=== PATIENT | female | born 1955 | race African-American/Black ===

== ENCOUNTER 2017-10-11 08:57 | Outpatient (CLI) | payer OTHER ==
--- NOTE | 2017-10-11 13:31 | MRI ---
MRI LUMBAR SPINE WITHOUT CONTRAST: HISTORY: M48.061, lumbar stenosis. COMPARISON: MRI lumbar spine 06/26/14. FINDINGS: The aortic contour is normal. No aneurysmal dilatation. Due to hyperintense focus in the superior pole right kidney and superior pole left kidney is similar. There also appears to be a T2 hyperintense focus within the right lobe of the liver, also similar. No acute peritoneal adenopathy is appreciated. Paraspinal musculature is normal. Background marrow signal is normal. Lumbar lordosis is maintained. The conus medullaris terminates at the mid L2 vertebral body. Levels are as follows: T12-l1: Normal disk. No neural foraminal or spinal canal narrowing. Superior end plate Schmorl's n ode of T12. L1-2: Normal disk. No significant neural foraminal or spinal canal narrowing. There is a hemangioma within the L1 vertebral body. L2-3: Normal disk. No neural foraminal or spinal canal narrowing. L3-4: Mild disk desiccation. Low-grade circumferential disk bulge along with superimposed bilateral subcarinal disk protrusion with abutment of the exiting nerve roots. L4-5: Mild disk desiccation. Circumferential disk bulge. There is left subforaminal superimposed d isk protrusion abutting the exiting nerve root. There are also hypertrophic facet changes bilaterall y. L5-S1: Mild disk desiccation. Moderate disk arthropathy. The facet arthropathy causing moderate bi lateral neural foraminal narrowing. IMPRESSION: Moderate progressive spondylosis as described above worse at L3-4 and L4-L5. POS: [facility]
== END 2017-10-11 08:58 | disposition home or self-care (01) ==
LOC: MRI 08:57
PROVIDERS: ATTEND Neurological Surgery
DX: M48.061 Spinal stenosis, lumbar region without neurogenic claudication (principal); M47.896 Other spondylosis, lumbar region
CPT/HCPCS: 72148

== ENCOUNTER 2017-10-13 14:35 | Outpatient (CLI) | payer OTHER ==
[2017-10-13 15:36] LABS: Hemoglobin 12.9 g/dL (12.0-16.0); Mean Corpuscular HGB CONC 32.7 g/dL (32.0-36.0); Mean Corpuscular Hemoglobin 30.1 pg (27.0-31.0); Mean Platelet Volume 7.3 fL (7.4-10.4); Platelet Count 217 thou/uL (130-400); RBC Distribution Width 13.8 % (11.5-14.5); Red Blood Cell (RBC) Count 4.29 mill/uL (4.20-5.40); White Blood Cell (WBC) Count 6.7 thou/uL (4.8-10.8)
[2017-10-13 15:41] LABS: PTT 32.4 SEC (22.9-36.1)
[2017-10-13 15:45] LABS: Prothrombin Time 12.9 SEC (12.0-14.7)
[2017-10-13 15:51] LABS: ALT (SGPT) 23 U/L (8-55); AST (SGOT) 24 U/L (5-34); Alkaline Phosphatase 94 U/L (40-150); Anion Gap 10 mmol/L (10-20); BUN (Urea Nitrogen) 18 mg/dL (9.8-20.1); Bilirubin, Total 0.3 mg/dL (0.2-1.2); Calc. Creatinine Clearance 0 mL/min (70-130); Calcium 9.7 mg/dL (7.8-10.44); Carbon Dioxide 30 mmol/L (22-29); Chloride 104 mmol/L (98-107); Estimated GFR-MDRD 63; Globulin 3.3 g/dL (2.4-3.5); Glucose 95 mg/dL (70-105); Potassium 3.7 mmol/L (3.5-5.1); Protein, Total 7.3 g/dL (6.0-8.3); Sodium 140 mmol/L (136-145)
== END 2017-10-13 14:36 | disposition home or self-care (01) ==
LOC: LABBT 14:35
PROVIDERS: ATTEND Internal Medicine Cardiovascular Disease
DX: Z01.818 Encounter for other preprocedural examination (principal); R07.9 Chest pain, unspecified
CPT/HCPCS: 80053; 85027; 85610; 85730

== ENCOUNTER → 2017-10-18 | Day surgery (SDC) | payer OTHER ==
[2017-10-13 14:54] VITALS: BMI 31.3
[~2017-10-18] MED LIST: Diazepam 5 MG TAB ONE; Heparin 0 ML ONE; Heparin 10,000 UNITS/1 ML VIAL ONE; Iopamidol 370 76% 100 ML VIAL ONE; Iopamidol 370 76% 50 ML VIAL FS ONE; Lidocaine 1% (PF) 30 ML VIAL ONE; Midazolam HCl 2 mg/2 ml Vial ONE; Morphine 2 MG/ML SYRINGE ONE; Nitroglycerin 100MG/250ML BOT 250 ML ONE; hydrALAZINE 20 MG/ML VIAL ONE
--- NOTE | 2017-10-19 04:58 | DIS ---
DATE OF ADMISSION: 10/18/2017 DATE OF DISCHARGE: 10/18/2017 DISCHARGE DIAGNOSES: 1. Coronary artery disease. 2. Status post percutaneous transluminal coronary angioplasty and stent placement of the right coronary artery. 3. Hypertension. 4. Dyslipidemia. 5. Systemic lupus erythematosus. 6. Tobacco abuse. The patient is a very pleasant 61-year-old woman who has a long history of coronary artery disease. The patient had noticed having increasing angina and was admitted for further evaluation. HOSPITAL COURSE: On 10/18/2017 the patient underwent a left heart catheterization. She was found to have a normal left ventricular systolic function with an estimated ejection fraction of 55-60%. The left anterior descending artery had a 30% stenosis. The right coronary artery had a 70% proximal stenosis, a 70% mid stenosis and a distal 40% stenosis. The patient subsequently underwent PTCA and stent placement into the right coronary artery. She also underwent PTCA of the distal lesion in the right coronary artery. The patient remained free of chest discomfort. She is discharged in stable condition. DISCHARGE MEDICATIONS: Aspirin 81 daily, Plavix 75, daily, Lipitor 80 at bedtime, Zyrtec 10 daily, duloxetine 30 mg daily, folic acid 1 tablet daily, Lasix 20 mg b.i.d., nifedipine 60 XL tablet daily, Protonix 40 daily, losartan 50/12.5 mg daily, potassium 20 mEq tablet daily, prednisone 10 b.i.d., nitroglycerin tablets 1 tablet twice a day 2.5 mg b.i.d. MTDD
--- NOTE | 2017-10-20 17:37 | EKG ---
Test Reason : POST STENT -RAC Blood Pressure : / mmHG Vent. Rate : 096 BPM Atrial Rate : 096 BPM P-R Int : 206 ms QRS Dur : 078 ms QT Int : 374 ms P-R-T Axes : 060 063 086 degrees QTc Int : 472 ms Normal sinus rhythm Normal ECG When compared with ECG of 31-DEC-2016 12:15, No significant change was found Confirmed by DR. Sofiya STACK ([id number]) on 10/20/2017 5:37:00 PM Referred By: LAURENCE Confirmed By:DR. Sofiya STACK
== END ==
LOC: CCL 06:39
PROVIDERS: ATTEND Internal Medicine Cardiovascular Disease
PROC: 02703DZ Dilation of Coronary Artery, One Artery with Intraluminal Device, Percutaneous Approach (ICD-10-PCS; principal; 2017-10-18)
PROC: 02703ZZ Dilation of Coronary Artery, One Artery, Percutaneous Approach (ICD-10-PCS; principal; 2017-10-18)
DX: I25.10 Atherosclerotic heart disease of native coronary artery without angina pectoris (principal); I10 Essential (primary) hypertension; E78.5 Hyperlipidemia, unspecified; M32.9 Systemic lupus erythematosus, unspecified; F17.210 Nicotine dependence, cigarettes, uncomplicated; M81.0 Age-related osteoporosis without current pathological fracture; M79.7 Fibromyalgia; M35.00 Sjogren syndrome, unspecified; I73.00 Raynaud's syndrome without gangrene; M06.9 Rheumatoid arthritis, unspecified; Z79.02 Long term (current) use of antithrombotics/antiplatelets; Z79.52 Long term (current) use of systemic steroids; Z79.899 Other long term (current) drug therapy; Z88.6 Allergy status to analgesic agent
CPT/HCPCS: 85347; 92928; 93005; 93454; 99152; 99153; C1769; C1876; C1887; J0360; J1644; J2001; J2250; J2270

== ENCOUNTER 2018-02-08 14:10 | Outpatient (CLI) | payer OTHER ==
[2018-02-08 16:10] LABS: Anion Gap 10 mmol/L (10-20); BUN (Urea Nitrogen) 21 mg/dL (9.8-20.1); Calc. Creatinine Clearance 0 mL/min (70-130); Calcium 10.2 mg/dL (7.8-10.44); Carbon Dioxide 30 mmol/L (23-31); Chloride 103 mmol/L (98-107); Estimated GFR-MDRD 73; Glucose 101 mg/dL (80-115); Sodium 139 mmol/L (136-145)
== END 2018-02-08 14:11 | disposition home or self-care (01) ==
LOC: LABBT 14:10
PROVIDERS: ATTEND Neurological Surgery
DX: Z01.818 Encounter for other preprocedural examination (principal); M48.061 Spinal stenosis, lumbar region without neurogenic claudication
CPT/HCPCS: 80048; 93005; 93010

== ENCOUNTER → 2018-02-13 | Day surgery (SDC) | payer OTHER ==
[2018-02-08 14:25] VITALS: BMI 31.8
--- NOTE | 2018-02-12 23:54 | HP ---
HISTORY OF PRESENT ILLNESS: Ms. Murguia is known to us for previous evaluation of lumbar neurogenic claudication has reached a point now where she would like to treat this with something more than cons ervative measures up to date. She has attempted injections, TENS unit, physical therapy and medicati ons but continues to have present symptoms. She has an MRI from [facility] that reveals mod erate central canal stenosis at L4-L5 that likely would fit her symptoms and hopes to treat this now. PAST MEDICAL HISTORY: Significant for coronary arterial disease, hypertension, asthma, osteoarthriti s, rheumatoid arthritis, lupus, and Sjogren's. ALLERGIES: ASPIRIN. PAST SURGICAL HISTORY: Breast biopsy and cardiac stents. ASSESSMENT: Neurogenic claudication. PLAN: Dr. Ferro met with the patient, reviewed imaging and advocated for an L4-L5 decompression. He explained to the patient the risks, benefits, and alternatives of the procedure. The patient expres sed understanding and would like to move forward with surgery as discussed. Robin Palomo PA-C, dictating for Dr. Ferro.
[~2018-02-13] MED LIST changes: +Acetaminophen/Codeine 30-300mg Tablet ONE; +Bupivacaine HCl 0.5%/Epinephrine 1:200,000/PF 30 ml Vial ONE; +CEFAZOLIN/Water 2 GM/20 ML SYRINGE ONE; +Dexamethasone 20 MG/5 ML VIAL ONE; -Diazepam 5 MG TAB ONE; +Fentanyl 100 MCG/2 ML VIAL ONE; -Heparin 0 ML ONE; -Heparin 10,000 UNITS/1 ML VIAL ONE; -Iopamidol 370 76% 100 ML VIAL ONE; -Iopamidol 370 76% 50 ML VIAL FS ONE; -Lidocaine 1% (PF) 30 ML VIAL ONE; +Lidocaine 1% PF 5 ML VIAL ONE; +Meperidine HCl/PF 25 MG/ML VIAL ONE; -Morphine 2 MG/ML SYRINGE ONE; -Nitroglycerin 100MG/250ML BOT 250 ML ONE; +Ondansetron HCl/PF 4 MG/2 ML Vial ONE; +PROPOFOL 200 MG/20 ML VIAL ONE; +Promethazine HCl 25 MG/ML VIAL ONE; +SUGAMMADEX SODIUM 200 MG/2 ML VIAL ONE; +Thrombin 5000 UNITS/5 ML VIAL ONE; -hydrALAZINE 20 MG/ML VIAL ONE
--- NOTE | 2018-02-13 08:45 | OP ---
DATE OF PROCEDURE: 02/13/2018 SURGEON: Jose Ferro M.D. METAL FLOORING INSTALLER: Robin Palomo PA-C. INDICATION: Pain. DIAGNOSIS: Lumbar stenosis. PROCEDURE PERFORMED: L4-L5 lumbar decompression. ANESTHESIA: General. TECHNIQUE: The patient was brought into the operating room and placed under general anesthesia. She was flipped from a supine to a prone position on the operating room table. An incision was planned over the L4-L5 segment. After prepping and draping and after an appropriate operative pause, the inc ision was created. The soft tissues were swept away from midline. Self-retaining retractors placed in the wound for optimal exposure. After confirming the appropriate level with C-arm fluoroscopy, an Adson rongeur was used to remove the spinous processes along the inferior aspect of L4 and superior aspect of L5. A high-speed cutting drill bit as well as 2, 3 and 4-mm Kerrisons were then used to pe rform laminectomies at that segment. The laminectomies were extended laterally to encompass the medi al aspect of facet joints. After decompressing the L4-L5 segment, the wound was irrigated. Hemostas is was maintained throughout. The wound was then closed in anatomic layers and a pressure dressing w as applied. There were no known procedural complications.
== END ==
LOC: SDC 06:03
PROVIDERS: ATTEND Neurological Surgery
PROC: 01NB0ZZ Release Lumbar Nerve, Open Approach (ICD-10-PCS; principal; 2018-02-13)
DX: M48.062 Spinal stenosis, lumbar region with neurogenic claudication (principal); I25.10 Atherosclerotic heart disease of native coronary artery without angina pectoris; I10 Essential (primary) hypertension; J45.909 Unspecified asthma, uncomplicated; M19.90 Unspecified osteoarthritis, unspecified site; M06.9 Rheumatoid arthritis, unspecified; Z88.6 Allergy status to analgesic agent; Z79.82 Long term (current) use of aspirin; Z79.899 Other long term (current) drug therapy
CPT/HCPCS: 76001; 96374; J0670; J1100; J2001; J2175; J2250; J2405; J2550; J2704; J3010

== ENCOUNTER 2018-08-03 13:32 | Outpatient (CLI) | payer OTHER ==
--- NOTE | 2018-08-03 18:58 | MRI ---
MRI RIGHT HIP WITHOUT CONTRAST: 08/03/18 HISTORY: M25.551 pain. COMPARISON: None. FINDINGS: BONES: There is no fracture. No malalignment. No osteonecrosis. No avascular necrosis. No stress edema. LABRUM: Evaluation of the labrum is limited without intra-articular contrast. Labrum is poorly evaluated on t his examination. TENDONS: There is high grade partial tear of the right gluteus medius tendon from the greater trochanteric lat eral facet. Mild cortical irregularity of the lateral facet from chronic partial tearing. MUSCLES: Mild fatty atrophy of the right gluteus medius muscle. No edema. INTRAPELVIC SOFT TISSUES: Unremarkable. IMPRESSION: High grade partial tear of the right gluteus medius tendon from the greater trochanter with associate d mild greater trochanteric bursitis. Patient may benefit from ultrasound guided sternoid and anesthe tic injection. POS: [facility]
== END 2018-08-03 13:33 | disposition home or self-care (01) ==
LOC: BICMRI 13:32
PROVIDERS: ATTEND Orthopaedic Surgery
DX: M25.551 Pain in right hip (principal); S76.011A Strain of muscle, fascia and tendon of right hip, initial encounter; M70.61 Trochanteric bursitis, right hip

== ENCOUNTER 2018-10-24 14:24 | Outpatient (CLI) | payer OTHER ==
--- NOTE | 2018-10-24 16:04 | RAD ---
THREE VIEWS RIGHT SHOULDER: Comparison: None. History: Right shoulder pain for months. FINDINGS: Three views of the right shoulder shows no evidence of acute fracture or dislocation. No degenerative changes are seen. The visualized right thorax is unremarkable. IMPRESSION: Unremarkable exam. POS: [facility]
== END 2018-10-24 14:25 | disposition home or self-care (01) ==
LOC: TBSIIMAG 14:24
PROVIDERS: ATTEND Neurological Surgery
DX: M25.511 Pain in right shoulder (principal)

== ENCOUNTER 2019-01-05 10:01 | Outpatient (CLI) | payer OTHER ==
--- NOTE | 2019-01-05 11:43 | MRI ---
MR of the right shoulder without contrast INDICATION: Right shoulder pain. History of lupus and rheumatoid arthritis TECHNIQUE: Sagittal T1, axial and coronal PD fat sat, sagittal and coronal T2 fat sat images were obt ained of the right shoulder. COMPARISON: Right shoulder radiograph dated October 24, 2018 FINDINGS: Motion artifact limits image detail. Rotator cuff: Intact. There is moderate tendinosis of the supraspinatus. No rotator cuff muscular atr ophy is present. Glenohumeral joint: There is there is a focal full-thickness articular cartilage thinning involving t he anterior and inferior glenoid articular surface with associated subchondral cystlike abnormalities. Glenoid labrum: Visualized aspects of the glenoid labrum are intact. No definite parallel labral cyst is seen. Biceps tendon and biceps anchor: There is mild to moderate tendinosis of the intra-articular biceps t endon. Acromion clavicular joint: There is mild AC joint osteoarthrosis Subacromial subdeltoid space: No appreciable fluid. Axillary region: No lymphadenopathy. Surrounding shoulder musculature: Normal. No evidence of atrophy or strain. IMPRESSION: 1. No full-thickness rotator cuff tear demonstrated. There is moderate supraspinatus tendinosis. 2. Mild to moderate biceps tendinosis. 3. Moderate chondrosis of the glenoid articular surface with areas of full-thickness thinning involvi ng the anterior and inferior aspect of the glenoid articular surface. 4. Mild AC joint osteoarthrosis.
--- NOTE | 2019-01-05 12:26 | ULT ---
LIMITED SOFT TISSUE ULTRASOUND: Date: 01/05/19 PROVIDED CLINICAL HISTORY: Lump. FINDINGS: Limited sonographic interrogation was performed of the right neck in the region of the right submandi bular gland. There is no evidence for focal mass. A calcification is seen within the submandibular gl and. IMPRESSION: No sonographically apparent mass to correspond with the region of palpable concern. There is a calcif ication present within the submandibular gland that may reflect a sialolith. POS: [facility]
== END 2019-01-05 10:02 | disposition home or self-care (01) ==
LOC: BICMRI 10:01
PROVIDERS: ATTEND Orthopaedic Surgery
DX: M25.511 Pain in right shoulder (principal); M75.91 Shoulder lesion, unspecified, right shoulder; M24.111 Other articular cartilage disorders, right shoulder; M19.011 Primary osteoarthritis, right shoulder; K11.8 Other diseases of salivary glands
CPT/HCPCS: 76536

== ENCOUNTER 2019-03-28 13:43 | Outpatient (CLI) | payer OTHER ==
--- NOTE | 2019-03-28 15:36 | ULT ---
RENAL ULTRASOUND WITH DOPPLER: DATE: 03/28/2019. PROVIDED CLINICAL HISTORY: Chronic kidney disease. FINDINGS: The right kidney measures about 10.5 x 4.9 x 3.6 cm and demonstrates no evidence for hydronephrosis o r solid mass. A simple-appearing 1.4 cm superior pole cyst. The left kidney measures about 9.9 x 4.4 x 4.3 cm and demonstrates no evidence for hydronephrosis or mass. The urinary bladder appears sonographically unremarkable. Color Doppler and spectral analysis of the aortic, main right and left renal and bilateral arcuate re nal arteries was performed. There is elevation of peak systolic velocity within the right renal rayo ry to 165 cm/s. There is elevation of the left main renal artery peak systolic velocity to 120 cm/s. Abdominal aortic peak systolic velocity is 52.2 cm/s. Right renal artery to aorta ratio is 3.2. Left renal artery to aorta ratio is 2.3. The resistive indices within the arcuate system are normal bilaterally, 0.55 on the right and 0.53 on the left. IMPRESSION: 1. Elevated peak systolic velocity and associated renal artery to aorta ratio on the right, which ma y reflect renal artery stenosis. 2. No evidence for hydronephrosis. POS: [facility]
== END 2019-03-28 13:44 | disposition home or self-care (01) ==
LOC: BICULT 13:43
PROVIDERS: ATTEND Family Medicine
DX: N18.3 Chronic kidney disease, stage 3 (moderate) (principal)
CPT/HCPCS: 76700; 76770

== ENCOUNTER 2019-03-28 14:27 | Outpatient (CLI) | payer OTHER ==
--- NOTE | 2019-04-04 10:28 | MMO ---
Bilateral MAMMO Bilat Screen DDI. CLINICAL HISTORY: Patient is 63 years old and is seen for screening. The patient has the following family history of breast cancer: paternal grandmother, malignant (generic). The patient has no personal history of cancer. The patient has a history of left Excisional Biopsy in 1991 - benign and left Excisional Biopsy in 1993 - benign. VIEWS: The views performed were: bilateral craniocaudal and bilateral mediolateral oblique. FILMS COMPARED: The present examination has been compared to prior imaging studies performed at [facility] on 06/30/2007, and at [facility] on 02/28/2008. This study has been interpreted with the assistance of computer-aided detection. MAMMOGRAM FINDINGS: There are scattered fibroglandular densities. There are stable benign appearing calcifications seen in both breasts. There are no suspicious masses, suspicious calcifications, or new areas of architectural distortion. IMPRESSION: THERE IS NO MAMMOGRAPHIC EVIDENCE OF MALIGNANCY. A ROUTINE FOLLOW-UP MAMMOGRAM IN 1 YEAR IS RECOMMENDED. ACR BI-RADS Category 2 - Benign finding MAMMOGRAPHY NOTE: 1. A negative mammogram report should not delay a biopsy if a dominant of clinically suspicious mass is present. 2. Approximately 10% to 15% of breast cancers are not detected by mammography. 3. Adenosis and dense breasts may obscure an underlying neoplasm. Reported by: PROSPER CELESTE MD Electonically Signed: [id number]
== END 2019-03-28 14:28 | disposition home or self-care (01) ==
LOC: BICMAMMO 14:27
PROVIDERS: ATTEND Family Medicine
DX: Z12.31 Encounter for screening mammogram for malignant neoplasm of breast (principal); Z80.3 Family history of malignant neoplasm of breast
CPT/HCPCS: 77067

== ENCOUNTER 2019-04-20 12:05 | Outpatient (CLI) | payer OTHER ==
--- NOTE | 2019-04-20 14:10 | CT ---
CT neck soft tissues with contrast: DATE: 04/20/2019 HISTORY: Sialolithiasis. Right-sided neck pain 63-year-old female. FINDINGS: There are at least 3 calculi within the right submandibular gland. One is approximately 3 x 4 x 5 mm. Abutting its posterior inferior surface, there is another one measuring 3 x 2 x 2 mm. Located 2 mm lateral to the first one, there is a 2 x 2 x 1 mm calculus. No fat stranding around the submandibular glands. Bilateral submandibular glands are symmetrical in s ize with respect to each other. Within limitations of a noncontrast scan, no other abnormality is identified involving the submandibular, parotid, parapharyngeal, corporate account executive, retropharyngeal, or post erior cervical, spaces. ACDF hardware at C4-5. No laryngeal abnormality grossly. No calculus in Warthin's ducts or Stensen's ducts. IMPRESSION: 1. Sialolithiasis consisting of 3 sialoliths in the right submandibular gland. 2. Please note that in general, all CTs of the soft tissues of the neck should be performed with IV c ontrast (unless contraindicated), including for sialolithiasis (the only exception would be parathyroid protocol which would be with and without contrast).
== END 2019-04-20 12:06 | disposition home or self-care (01) ==
LOC: BICCT 12:05
PROVIDERS: ATTEND Otolaryngology Otolaryngic Allergy
DX: K11.5 Sialolithiasis (principal)
CPT/HCPCS: 70490

== ENCOUNTER 2019-09-04 09:02 | Outpatient (CLI) | payer OTHER ==
--- NOTE | 2019-09-04 10:10 | MRI ---
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 COMPARISON: Right hand radiographs dated January 07, 2016 and right wrist radiographs dated May 15, 2019. TECHNIQUE: Multiplanar multisequence MR images were obtained of the right wrist without intraarticular or IV con trast. FINDINGS: There is nonvisualization of normal scapholunate ligaments along the volar and dorsal aspect of the s capholunate interval. No interosseous band is evident. There is dorsal angulation of the lunate in relationship to the scaphoid consistent with DISI malalignment. There is advanced radiocarpal, midcar pal osteoarthrosis predominantly affecting the STT and the scaphoid capitate and lunate capitate articulations. There are prominent subchondral cystlike abnormalities within the scaphoid, proximal c apitate, lunate and distal radius. There is a prominent area of intrasubstance degenerative-type tearing involving the peripheral aspect of the TFC measuring 4.2 mm on image 9 of series 7. The perip heral attachments to the ulnar styloid process and fovea appear intact. The radial ulnar ligaments appear intact. The lunatotriquetral ligaments appear intact. The extrinsic ligaments appear to be int act. There is moderate first CMC osteoarthrosis. There is a mild joint effusion with mild synovial hypertrophy seen within the pisiform recess as well as the DRUJ. There is mild fluid distention invol ving the ECRB and ECRL tendons. There is mild fluid distention of the extensor carpi ulnaris tendon. There is mild fluid distention of the FCR tendon sheath. The visualized carpal tunnel content s appear within normal limits. IMPRESSION: 1. Findings consistent with a SLAC wrist. There is nonvisualization of the normal-appearing scapholun ate ligaments. There is DISI malalignment of the lunate with advanced osteoarthritic change involving the radiocarpal and midcarpal joints. There is some proximal migration of the capitate in r elationship to the scaphoid and lunate. 2. Degenerative, near full-thickness tear involving the peripheral aspect of the TFC. 3. Mild tenosynovitis of the ECRB and ECRL tendon sheath as well as the ECU and FCR tendons. This is likely reactive tenosynovitis. 4. Mild joint effusion within the radiocarpal and DRUJ joints. Transcribed Date/Time: 09/04/2019 10:29 AM
== END 2019-09-04 09:03 | disposition home or self-care (01) ==
LOC: BICMRI 09:02
PROVIDERS: ATTEND Orthopaedic Surgery Hand Surgery
DX: S69.81XA Other specified injuries of right wrist, hand and finger(s), initial encounter (principal); M19.031 Primary osteoarthritis, right wrist; S63.591A Other specified sprain of right wrist, initial encounter; M65.9 Synovitis and tenosynovitis, unspecified; M25.431 Effusion, right wrist

== ENCOUNTER 2019-10-17 03:04 | Observation (INO) | payer OTHER ==
[2019-10-17 04:39] LABS: Troponin I 0.148 ng/mL (< 0.028)
[2019-10-17] MEDS ORDERED: Ondansetron PF 4 MG/2 ML Vial IVP PRN (05:58)
[2019-10-17] MEDS ORDERED: Calcium Carbonate 500 MG ChewTAB PO PRN (05:58)
[2019-10-17] MEDS ORDERED: Acetaminophen 325 MG TAB PO PRN (05:58)
[2019-10-17] MEDS ORDERED: Ondansetron ODT 4 MG TAB PO PRN (05:58)
--- NOTE | 2019-10-17 06:03 | PDOC.FPRHP ---
- History of Present Illness Chief Complaint: Chest Pain, Dizziness History of Present Illness: Patient is a 63 yo female who presents with chest pain accompanied by nausea & vomiting that started at 1715 on 10/16/2019. Chest pain was described as pressure- like located in center of chest with no radiation. The patient also felt dizzy at the time. She took one of her home nitro and laid down but after 3 hours the pain was still not better which prompted her to go to the ED in [place], [place]. At that ED she was found to be in SVT, which converted to NSR after 1 dose of Adenosine. She was transferred to [facility] for admission. Patient is not currently complaining of any symptoms. Patient states that she has had heart arrhythmias in the past, for which she is followed by Cardiology-Dr. Correa. Pt states that Dr. Correa recently increased her Metoprolol to 50 mg BID and had been discussing a possible ablation procedure for October 21. Patient says that she has been having dizzy spells on/off for 2 months. She has had similar chest pain in the past when she was told her heart was racing at the time. ED Course: In [place] ED was found to be in SVT, given 1 dose Adenosine and converted to NSR and symptoms resolved. Then transferred to [facility] ED for further workup. Initial trop 0.036, uptrending to 0.092 to 0.148. - Allergies/Adverse Reactions Allergies Allergy/AdvReac Type Severity Reaction Status Date / Time aspirin Allergy Intermediate RASH, HIVES Verified 10/17/19 06:25 shrimp Allergy Verified 10/17/19 06:25 - Home Medications Medication Instructions Recorded Confirmed Type Cetirizine HCl [Zyrtec] 10 mg PO DAILY PRN 11/25/16 02/08/18 History Clopidogrel Bisulfate [Clopidogrel] 75 mg PO DAILY 11/25/16 02/08/18 History HYDROcodone/Acetaminophen 1 each PO PRN PRN 11/25/16 02/08/18 History [Hydrocodone-Acetamin 10-325 mg] Leflunomide 10 mg PO DAILY 11/25/16 02/08/18 History Methotrexate Sodium [Methotrexate] 6 tab PO Q7DAYS 11/25/16 02/08/18 History Nitroglycerin 2.5 mg PO BID 11/25/16 02/08/18 History predniSONE [Prednisone] 10 mg PO BID 11/25/16 02/08/18 History Albuterol Sulfate [Proair 2 mcg IH Q4H PRN 12/31/16 02/08/18 History Respiclick] Alendronate Sodium 70 mg PO Q7D 12/31/16 02/08/18 History Atorvastatin Calcium 80 mg PO HS 12/31/16 02/08/18 History Cyanocobalamin (Vitamin B-12) 1,000 mcg PO DAILY 12/31/16 02/08/18 History [Vitamin B-12] Folic Acid [Folvite] 1 mg PO DAILY 12/31/16 02/08/18 History Ipratropium [Atrovent HFA] 2 puff INH QID PRN 12/31/16 02/08/18 History Lidocaine/Prilocaine 1 applic TOP PRN PRN 12/31/16 02/08/18 History [Lidocaine-Prilocaine Cream] Ondansetron HCl 1 - 2 tab PO TID PRN 12/31/16 02/08/18 History Pantoprazole Sodium 40 mg PO DAILY PRN 12/31/16 02/08/18 History Terbinafine HCl [LamISIL AT Cream] 1 applic TOP TID PRN 12/31/16 02/08/18 History hydrOXYzine [Atarax] 25 mg PO QID PRN 12/31/16 02/08/18 History NIFEdipine [Nifedipine ER] 60 mg PO DAILY #30 tablet.er 01/01/17 02/08/18 Rx Potassium Chloride [K-Dur] 20 meq PO DAILY #30 tab 01/01/17 02/08/18 Rx Aspirin [Ecotrin] 81 mg PO DAILY 02/08/18 02/08/18 History Cholecalciferol (Vitamin D3) 50,000 unit PO Q7D 02/08/18 02/08/18 History [Vitamin D3] Losartan/Hydrochlorothiazide 1 tablet PO DAILY 02/08/18 02/08/18 History [Hyzaar] Ranolazine [Ranexa] 500 mg PO BID 02/08/18 02/08/18 History - History PMHx: SLE, Sjogren's syndrome, Raynaud's, HTN, HLD, CKD unknown stage, COPD PSHx: cardiac cath with stent placement in 2013, salivary stone removal on right , cervical and lumbar spinal surgeries FHx: father of RI age 70, mother with DM ( of car accident), grandmother with breast cancer, sister with DM Social: smokes 2 cigarettes/day, no EtOH use - Review of Systems General: denies: fever/chills, weight/appetite/sleep changes, fatigue Eyes: denies: vision changes ENT: denies: nasal congestion Respiratory: denies: cough, congestion, shortness of breath Cardiovascular: reports: chest pain, palpitation. denies: edema Gastrointestinal: reports: nausea, vomiting. denies: diarrhea, constipation, abdominal pain Genitourinary: denies: dysuria Skin: denies: rashes, lesions, jaundice Musculoskeletal: denies: pain, swelling Neurological: denies: numbness, syncope, weakness - Vital signs BP: 138/95 HR: 75 RR: 15 Tmax: 98.2F Pox: 98% on RA Wt: 73 kg - Physical Exam Constitutional: NAD, awake, alert and oriented, well developed HEENT: normocephalic and atraumatic, EOMI, conjunctiva clear, grossly normal vision, grossly normal hearing, MMM Neck: supple, FROM, no JVD Chest: no-tender to palpation, no lesions Heart: RRR, normal S1/S2, no murmurs/rubs/gallops, pulses present, no edema Lungs: CTAB, no respiratory distress, good air movement, no rales/rhonchi, no wheezing Abdomen: soft, non-tender, bowel sounds present Musculoskeletal: normal structure, normal tone, ROM grossly normal Neurological: no focal deficit, normal sensation Skin: no rash/lesions, good turgor, capillary refill <2 seconds, no jaundice -Heme/Lymphatic: scattered bruising of different stages on extremities Psychiatric: normal mood and affect, intact recent and remote memory FMR H&P: Results - Labs Result Diagrams: 10/17/19 06:43 10/17/19 06:43 FMR H&P: A/P - Problem List (1) Atypical chest pain Current Visit: Yes Status: Acute Code(s): R07.89 - OTHER CHEST PAIN (2) Hx of supraventricular tachycardia Current Visit: Yes Status: Acute Code(s): Z86.79 - PERSONAL HISTORY OF OTHER DISEASES OF THE CIRCULATORY SYSTEM (3) Acute kidney injury Current Visit: Yes Status: Acute Code(s): N17.9 - ACUTE KIDNEY FAILURE, UNSPECIFIED - Plan Patient is a 63 yo female with atypical chest pain and dizziness: #Atypical Chest Pain -consult Cardio, Dr. Correa in AM -troponins 0.036 > 0.092 > 0.148, will continue to trend -suspect d/t demand ischemia given recent hx of SVT -risk stratification labs: TSH, A1C, FLP, Mag, Phos -consider stress test, last had cardiac cath in 2013 with 2 stent placements #Hx of SVT -converted after 1 dose of Adenosine on 10/16/19 in [place] ED -place on telemetry monitoring #ANDREW -initial BUN 27, Cr 1.42, above baseline of 1 -half maintenance IVF LR @ 60 ml/h -check CMP on AM labs Diet: NPO, ice chips & sips of water okay VTE: SCDs Code status: FULL Dispo: Stable, admitted to observation on telemetry unit. Obtain labs & trend trops, consult Cardiology in AM. Anticipate LOS <48 hrs. FMR H&P: Upper Level - Plan Date/Time: 10/17/19 0602 ISamantha, , have evaluated this patient and agree with findings/plan as outlined by software engineer intern resident. Pertinent changes/additions are listed here. Pt is a 63 yo F with PMH of SVT, CAD s/p stent, HTN, and HLD presenting for pressure like chest pain, dizziness, and nausea onset 1715 yesterday. She was found to have SVT in [place] ED, and was chemically converted to NSR. She reports almost resolved CP since that time. She reports recent hx of arrhythmias seen by Dr. Correa and metoprolol dose was increased. She reports she has an upcoming appt where they were going to discuss ablation. Last cath 2 yrs ago per her report, per chart review was in 2013. VS: 174/77, T97.8, P82, R18, o298%RA PE: Gen: well developed, NAD HEENT: Moist MM Heart: RRR, no murmurs or extra sounds. Distal pulses 2+ Lungs: CTAB, no wheezing. No increased work of breathing Abd: soft, nontender, BS+ Ext: no cyanosis or edema Skin: no rashes, multiple ecchymosis of LE Psych: AOx3, normal mood Pertinent Labs/Imaging: WBC 12.8 BUN/Cr: 27/1.42 Trop: 0.036, 0.092, 0.148 EKG: NSR with no ST changes A/P: SVT s/p Chemical Conversion: -NSR now with no ST changes on EKG -place in obs for tele monitoring. Atypical CP: -pt reports almost resolved since conversion into NSR. -trops uptrending, continue to trend but likely d/t demand -Consult Dr. Correa in AM to discuss possible stress. NPO until cards. -HEART score: 4 -risk stratify and evaluate other causes- FLP, A1c, Mg, Phos, TSH ANDREW on CKD: -baseline Cr. 1.1 -place on gentle fluids and encourage PO hydration once PO. See software engineer intern note for management of chronic medical conditions. DVT PPx: SCD GI Ppx: none Code status: Full Dispo: Stable, LOS likely <48h.
[2019-10-17 06:19] VITALS: BMI 29.7
[2019-10-17 06:54] LABS: #Eosinphils 0.2 thou/uL (0.0-0.7); #Lymphocytes 2.9 thou/uL (1.20-3.40); #Monocytes 0.7 thou/uL (0.11-0.59); %Basophils 0.2 % (0.0-1.0); %Eosinophils 1.9 % (0.0-10.0); %Lymphocytes 33.1 % (21.0-51.0); %Monocytes 8.1 % (0.0-10.0); %Neutrophils 56.8 % (42.0-75.0); Mean Corpuscular HGB CONC 32.3 g/dL (32.0-36.0); Mean Corpuscular Hemoglobin 30.4 pg (27.0-31.0); Mean Corpuscular Volume 94.2 fL (78.0-98.0); Mean Platelet Volume 7.9 fL (7.4-10.4); Platelet Count 188 thou/uL (130-400); RBC Distribution Width 13.5 % (11.5-14.5); Red Blood Cell (RBC) Count 4.28 mill/uL (4.20-5.40); White Blood Cell (WBC) Count 8.8 thou/uL (4.8-10.8)
[2019-10-17 07:01] LABS: Hemoglobin A1c 5.3 % (4.0-6.0)
[2019-10-17 07:07] LABS: Phosphorus 3.3 mg/dL (2.3-4.7)
[2019-10-17 07:10] LABS: ALT (SGPT) 14 U/L (8-55); AST (SGOT) 13 U/L (5-34); Albumin 3.6 g/dL (3.4-4.8); Alkaline Phosphatase 81 U/L (40-110); Anion Gap 11 mmol/L (10-20); BUN (Urea Nitrogen) 19 mg/dL (9.8-20.1); Bilirubin, Total 0.3 mg/dL (0.2-1.2); Calc. Creatinine Clearance 72 mL/min (70-130); Calcium 9.1 mg/dL (7.8-10.44); Carbon Dioxide 29 mmol/L (23-31); Cardiac Risk 3.1 (Less than 4.5); Chloride 106 mmol/L (98-107); Cholesterol 180 mg/dl (< 200 Desired); Estimated GFR-MDRD 70; Globulin 3.3 g/dL (2.4-3.5); Glucose 91 mg/dL (80-115); HDL Cholesterol 58 mg/dL (>60 Neg Risk); LDL Cholesterol, Calculated 110 mg/dL; Magnesium 2.1 mg/dL (1.6-2.6); Potassium 3.5 mmol/L (3.5-5.1); Protein, Total 6.9 g/dL (6.0-8.3); Sodium 142 mmol/L (136-145); Triglycerides 58 mg/dL (Less than 150)
[2019-10-17 07:31] LABS: CKMB 3.2 ng/mL (0-6.6)
[2019-10-17] MEDS: Lactated Ringer's 1,000 ML IV SCH ×2 (08:02→23:59)
--- NOTE | 2019-10-17 09:15 | CON ---
DATE OF CONSULTATION: HISTORY OF PRESENT ILLNESS: A 63-year-old woman, who presented with palpitations and chest discomfort. The patient has a long history of coronary artery disease. In 2013, she underwent a cardiac catheterization. She was found to have a 30% proximal LAD lesion, 40% ostial circumflex lesion, and 40% RCA lesion. The patient was placed on medical therapy. She is advised to discontinue smoking. She re- presented with chest pain in October of 2017. She underwent repeat catheterization. She was found to have a 30% LAD lesion. There is a 70% lesion in the proximal and mid RCA and another 40% mid stenosis. The patient subsequently underwent PTCA and stent placement into this vessel. The patient has subsequently been on medical therapy. She had been reporting having increasing palpitations. She presented to the hospital with palpitations, lightheadedness, and chest discomfort. PAST MEDICAL HISTORY: 1. Coronary artery disease. 2. Hypertension. 3. Sjogren's syndrome. 4. Dyslipidemia. 5. COPD. PAST SURGICAL HISTORY: Back surgery and a stone removed from her salivary gland. SOCIAL HISTORY: Long history of continued tobacco abuse. FAMILY HISTORY: Strong family history of coronary artery disease. MEDICATIONS: See nursing list. ALLERGIES: ASPIRIN AND SHRIMP. PHYSICAL EXAMINATION: GENERAL: Well-developed woman, in no acute distress. VITAL SIGNS: Blood pressure of 124/75. NECK: No jugular venous distention. LUNGS: Clear to auscultation. HEART: Regular rate and rhythm. Normal S1 and S2. ABDOMEN: Nondistended. EXTREMITIES: Showed no edema. LABORATORY DATA: Sodium 142, potassium 3.5, chloride 106, bicarbonate 29, BUN 19, and creatinine 0.98. Troponin was 0.0148. White blood cell count 8.8, hemoglobin 13.0, hematocrit 43.3, and platelets are 188. IMAGING DATA: EKG revealed supraventricular tachycardia with a rate of 176. IMPRESSION: 1. Supraventricular tachycardia. 2. History of percutaneous transluminal coronary angioplasty and stent placement. 3. Dyslipidemia. 4. Sjogren's disease. 5. Tobacco abuse. PLAN: This patient presents with rapid SVT. EP consultation will be obtained. It will be recommended that the patient be considered for ablation. Job ID: [id number] [facility]
[2019-10-17] MEDS ORDERED: Lidocaine 1% PF 5 ML VIAL ONE (09:53)
[2019-10-17] MEDS ORDERED: Ondansetron PF 4 MG/2 ML Vial ONE (09:53)
[2019-10-17] MEDS ORDERED: Heparin 10,000 UNITS/1 ML VIAL ONE (14:42)
[2019-10-17] MEDS ORDERED: Fentanyl 100 MCG/2 ML VIAL ONE ×2 (14:49→17:36)
[2019-10-17] MEDS ORDERED: Propofol 500 MG/50 ML VIAL ONE ×2 (15:23→16:29)
[2019-10-17] MEDS ORDERED: Isoproterenol 0.2 MG/1 ML AMP ONE (16:04)
--- NOTE | 2019-10-17 16:13 | HP ---
I have discussed the case with Dr. Genesis Molina and I agree with her assessment and plan. I have examined the patient. HISTORY OF PRESENT ILLNESS: Briefly, Ms. Murguia is a 63-year-old female with a coronary artery disease, who presented with some chest pain as well as palpitations. She presented to an outlying ER in [place] and was found to be in SVT. She was given a dose of adenosine and converted to normal sinus rhythm. She was subsequently transferred to [place] for higher level of care. She normally sees Dr. Correa of the Cardiology service for her heart arrhythmias and CAD. PHYSICAL EXAMINATION: GENERAL: Right now, she is awake, alert, pleasant, no distress. She is not short of breath. She is not currently having palpitations. She is not having chest pain. VITAL SIGNS: Her blood pressure is 138/90. Her heart rate is now 70 and regular. Her respirations are 15. She is afebrile. Her room air pulse ox is 98%. GENERAL: As stated, awake, alert, pleasant. EAR, NOSE, THROAT: No erythema or exudate. NECK: Supple. No JVD. CARDIAC: PMI is in the fifth intercostal space. There is an S4 apical gallop. No murmur or rub noted. No extrasystole. LUNGS: Clear without rales or wheezes. ABDOMEN: Flat and soft without guarding, rebound, or rigidity. NEUROLOGIC: There are no focal deficits. LABORATORY DATA: Her CBC shows white count of 8800, hemoglobin was 13, her hematocrit was 40.3 with an MCV of 94.2. Chemistries; sodium 142, potassium 3.5, chloride 106, bicarb 29, BUN 19, creatinine 0.98 with a GFR of 70. Troponins level at 0.148 and 0.141. Total cholesterol 180, LDL 110. ASSESSMENT: 1. Supraventricular tachycardia. 2. History of coronary artery disease. PLAN: The patient is admitted, has already been seen by Cardiology who has consulted Dr. Guerrero of the EP service for consideration of ablation. Job ID: [id number]
--- NOTE | 2019-10-17 16:25 | CON ---
DATE OF CONSULTATION: 10/17/2019 REASON FOR CONSULTATION: Supraventricular tachycardia. HISTORY OF PRESENT ILLNESS: Ms. Murguia is a 63-year-old woman who is a long- time patient of Dr. Tapan Correa for her cardiology care and coronary artery disease. In 2013, she underwent a left heart catheterization, revealing approximately 30 % to 40% nonobstructive lesions and she was placed on medical therapy. She presented with chest pain in 10/2017, where repeat left heart catheterization was performed, which found significant CAD in the mid and proximal RCA, measured 70%, and then was subsequently stented. She is continued on medical therapy. She presents to the hospital with palpitations and lightheadedness with some mild chest discomfort. Ms. Murguia has begun experiencing palpitations with some "off sensations." She has some associated chest discomfort. She has noticed these episodes are increasing in frequency over the past 6 to 12 months, but does not recall any episodes prior to that time. She presented to an outside emergency room where she was found to be in SVT in 170 to 180 beats per minute range. She was given adenosine to treat her SVT. This restored sinus rhythm and she was transferred to [facility] for further evaluation and workup. She has not had any recurrence on telemetry since admission. She has had no return of her symptoms since admission. She is currently feeling quite well and has no cardiac complaints at the moment. REVIEW OF SYSTEMS: A 12-point review of systems is unremarkable except that listed above in HPI. PAST MEDICAL HISTORY: 1. Coronary artery disease status post stenting to the RCA in 10/2017. 2. Tobacco habituation. 3. Obesity. 4. Hypertension. 5. Sjogren syndrome. 6. Dyslipidemia. 7. COPD. SURGICAL HISTORY: 1. Back surgery. 2. Stone removal from her salivary gland. SOCIAL HISTORY: Tobacco abuse. Negative for alcohol or illicit drug use. FAMILY HISTORY: Positive for CAD. ALLERGIES: ASPIRIN AND SHRIMP. MEDICATIONS: 1. Xeljanz 5 mg p.o. b.i.d. 2. Voltaren 0.1% ophthalmic solution q.i.d. 3. Orazinc 110 mg daily. 4. Dovonex cream b.i.d. 5. Montelukast 5 mg daily. 6. Nexium 20 mg daily. 7. Hydralazine 50 mg t.i.d. 8. Citalopram 10 mg daily. 9. Granby 10/325 two tablets q.4 h. 10. Enbrel 5 mg weekly. 11. Toprol-XL 50 mg daily. 12. Vascepa 2 g b.i.d. 13. Zetia 10 mg daily. 14. Alendronate 70 mg weekly. 15. Atorvastatin 80 mg daily. 16. ProAir p.r.n. 17. Vitamin B12 of 1000 mcg daily. 18. Plavix 75 mg daily. 19. Vitamin D weekly. 20. Folic acid 1 mg daily. 21. Atrovent p.r.n. 22. Leflunomide 10 mg daily. 23. Losartan and hydrochlorothiazide 50/12.5 mg daily. 24. Nitroglycerin sublingual as needed. 25. Protonix 40 mg as needed. 26. Nifedipine 60 mg b.i.d. 27. Zofran 4 mg t.i.d. p.r.n. 28. Ranexa 500 mg b.i.d. 29. Prednisone 10 mg daily. 30. Atarax 25 mg b.i.d. p.r.n. 31. Lamisil t.i.d. p.r.n. OBJECTIVE: VITAL SIGNS: Temperature 98 degrees, pulse 67, blood pressure 124/ 75, respirations 16, and oxygen is 97% on room air. GENERAL: The patient is alert and oriented. Speech is clear. Affect is appropriate. She is in no apparent distress at the time of the exam. NECK: Supple without jugular venous distention. Her trachea is midline. There is no lymphadenopathy. She has adequate dentition. HEART: Tones are clear. She has crisp S1 and S2. PMI is nondisplaced. Heart rate is irregularly irregular. LUNGS: Clear to auscultation bilaterally without wheezes, crackles, or rhonchi. Respirations even and unlabored with bilateral excursion. ABDOMEN: Obese, soft, and nontender without palpable masses. EXTREMITIES: Warm and dry to touch. Well perfused without clubbing, cyanosis, or edema. NEUROLOGIC: Grossly intact and nonfocal. Gait was not assessed. LABORATORY DATA: Hematology was unremarkable. Chemistry: Potassium 3.5 and creatinine 0.98. A1c 5.3. Magnesium 2.1. Liver enzymes within normal limits. Mild elevation in troponins, peaked at 0.148. TSH 1.29. Telemetry and EKG reflects sinus rhythm with normal intervals since presenting to [place]. External rhythm strip of her SVT was reviewed, but has a significant amount of baseline tremor and artifact, making P waves difficult to discern, although this is suggestive of AVNRT and did appropriately convert with IV adenosine push. IMPRESSION: 1. Supraventricular tachycardia with ventricular rate of 176 beats per minute, terminated with IV adenosine, possibly AVNRT vs A Tach. 2. Coronary artery disease status post percutaneous coronary intervention of the right coronary artery in 2018. 3. Dyslipidemia. 4. Surgeon syndrome. 5. Ongoing tobacco habituation. 6. Hypertension. 7. Obesity. PLAN AND RECOMMENDATIONS: Ms. Murguia is seen to have SVT. EKGs and rhythm strips from external facility are somewhat difficult to read due to the baseline artifact. 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 I had a discussion with Ms. Murguia regarding SVT, possible different abnormal rhythms, and treatment options including medical management, watchful waiting, and EP study. At this point, my recommendation is for electrophysiology study with possible ablation for either AVNRT or possibly an atrial tachycardia, or even AV re-entrant tachycardia. She voices understanding of the risks associated including hematoma, bleeding at the groin site, abnormal heart rhythms, and arrhythmia recurrence. Her family is at bedside during the discussion at her request as well. She is n.p.o. and will likely be able to arrange for ablation later today. Thank you for allowing me to participate in the care of this patient. Job ID: [id number] [facility]
[2019-10-17] MEDS ORDERED: Promethazine HCl 25 MG/ML VIAL IM PRN (17:46)
[2019-10-17] MEDS ORDERED: Promethazine HCl 25 MG/ML VIAL SLOW IVP PRN (17:46)
[2019-10-17] MEDS ORDERED: Ondansetron HCl/PF 4 MG/2 ML Vial IVP PRN (17:46)
[2019-10-17] MEDS ORDERED: Acetaminophen/Codeine 30-300mg Tablet PO PRN ×2 (18:00)
[2019-10-17] MEDS ORDERED: Albuterol Sulfate 2.5 mg/3 ml Neb NEB PRN (21:39)
[2019-10-17] MEDS ORDERED: Ipratropium Oral Inhaler INH PRN ×2 (21:39)
[2019-10-17] MEDS ORDERED: PROMETHAZINE PO PRN (21:39)
[2019-10-17] MEDS ORDERED: DEXTROMETHORPHAN PO PRN (21:39)
[2019-10-17] MEDS ORDERED: hydrOXYzine 25 MG TAB PO PRN (21:39)
[2019-10-17] MEDS ORDERED: Cyclobenzaprine 10 MG TAB PO PRN (21:39)
[2019-10-17] MEDS ORDERED: Lactinex Tablet PO PRN (21:39)
[2019-10-17] MEDS ORDERED: Lidocaine-Prilocaine 2.5% Cream 5 GM TUBE TOP PRN (21:39)
[2019-10-17] MEDS ORDERED: Alendronate Sodium 70 mg Tablet PO SCH (21:45)
[2019-10-17] MEDS ORDERED: Nitroglycerin 0.4 MG TAB (25 Tab Bottle) SL PRN (21:57)
[2019-10-17] MEDS ORDERED: PROVENTIL INHALER 6.7 G (200 INHALATIONS) INH PRN (22:00)
[2019-10-17] MEDS ORDERED: Loratadine 10 MG TAB PO PRN (22:00)
--- NOTE | 2019-10-18 00:19 | OP ---
DATE OF PROCEDURE: 10/17/2019 PROCEDURES PERFORMED: Electrophysiology study and radiofrequency ablation. REASON FOR PROCEDURE: Mrs. Murguia is a 63-year-old woman with prior history of coronary artery disease with RCA stenting in the past who is presenting with increasing frequency of palpitations. She was noted to have a narrow complex SVT and adenosine was given for termination. She is here for EP study and ablation procedure. DESCRIPTION OF PROCEDURE: The patient received deep sedation by Anesthesia specialist. The left and right femoral venous areas were prepped, draped and anesthetized using subcutaneous lidocaine. Both femoral veins were cannulated under ultrasound guidance. On the left side, 6 and 8-Indonesian sheaths were introduced through which octapolar and decapolar catheters were advanced to the right atrium, right ventricle, His bundle, CS position. Pacing, mapping and recording were performed from each location including pacing left atrium via the CS. Following findings were noted. Baseline rhythm was sinus rhythm with RR interval of 631 milliseconds, RI 238 milliseconds, QRS 73 milliseconds, QT 378 milliseconds, AH 181 milliseconds, HV 48 milliseconds. The sinus node recovery time was 1087, corrected 2087 milliseconds noted. AV Wenckebach cycle length was 460 milliseconds, retrograde Wenckebach cycle length was about 600 milliseconds. AV clem ERP was measured at 600/240 milliseconds. No dual AV clem physiology was seen. Concentric retrograde VA conduction was noted. The burst atrial pacing was induced and atrial tachycardia with cycle length of initially 390 milliseconds, which appears to be right atrial in origin. Overdrive pacing from the proximal distal CS was incrementally with longer post pacing interval suggestive of right atrial origin. Following that through the right the venous access site, an 8-Indonesian short sheath was introduced through, which a ThermoCool SF catheter was advanced to the right atrium. 3D map of the right atrium was obtained with both activation, voltage map was obtained. During the tachycardia, we were able to elicit different cycle length on and off Isuprel. We were able to find the earliest activation in the posterolateral right atrial area near the gen, high output pacing from this area did not create diaphragmatic stimulation. Radiofrequency ablation in this area was performed with a total of 1 minute and 5 seconds delivered and tag index was observed to be over 400. After the cautery, the atrial tachycardia was not reinducible. Isuprel was also administered again up to 6 mcg and burst atrial maneuvers did not induce atrial tachycardia, transient possible typical atrial flutter, self-terminated and also very short atrial fibrillation was also self-terminated. At end of the case, cardiac silhouette did not change. The catheter was removed from body and the access sites were closed with Vascade closure device. The patient tolerated the procedure well. No complications noted. CONCLUSION: 1. 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 2. Radiofrequency in this area eliminated the inducibility of atrial tachycardia. 3. Normal sinus AV clem and His-Purkinje function noted. 4. No evidence of dual AV clem physiology or accessory pathway is observed. PLAN: Monitor recurrent arrhythmias. Routine post ablation care. Job ID: [id number]
--- NOTE | 2019-10-18 05:24 | PDOC.FM ---
- Subjective Subjective: Patient doing well this morning. Denies any chest pain or palpitations. Reports that the procedure went well yesterday. No complaints. - Objective Vital Signs & Weight: Vital Signs (12 hours) Temp Pulse Resp BP Pulse Ox 10/18/19 04:26 98.8 F 84 17 105/75 94 L 10/17/19 23:52 82 16 146/78 H 10/17/19 18:35 98.4 F 72 16 169/89 H 96 Weight Weight 76.249 kg I&O: 10/16/19 10/17/19 10/18/19 06:59 06:59 06:59 Intake Total 610 Output Total 1200 Balance -590 Result Diagrams: 10/17/19 06:43 10/17/19 06:43 EKG Reviewed by me: Yes (sinus, 1st degree, 60s-80s) Phys Exam - Physical Examination Constitutional: NAD HEENT: moist MMs, sclera anicteric Neck: supple, full ROM Respiratory: no wheezing, clear to auscultation bilateral Cardiovascular: RRR, no significant murmur Gastrointestinal: soft, non-tender Musculoskeletal: no edema, pulses present Neurological: non-focal, moves all 4 limbs Lymphatic: no nodes Psychiatric: normal affect, A&O x 3 Skin: no rash, normal turgor Dx/Plan (1) Paroxysmal SVT (supraventricular tachycardia) Code(s): I47.1 - SUPRAVENTRICULAR TACHYCARDIA Status: Acute (2) Acute kidney injury Code(s): N17.9 - ACUTE KIDNEY FAILURE, UNSPECIFIED Status: Acute (3) Hx of supraventricular tachycardia Code(s): Z86.79 - PERSONAL HISTORY OF OTHER DISEASES OF THE CIRCULATORY SYSTEM Status: Acute - Plan Plan: Patient is a 63 yo female with atypical chest pain and dizziness: #Atypical Chest Pain -consulted Cardiology, Dr. Correa, appreciate recs -troponins 0.036 > 0.092 > 0.148 > 0.141 -suspect d/t demand ischemia given recent hx of SVT -risk stratification labs: -total chol 180, LDL 110, HDL 58; continue patient's home statin -A1C 5.3 -TSH 1.29 -last had cardiac cath in 2013 with 2 stent placements -likely due to SVT as patient is not complaining of chest pain when her heart is RRR #Hx of Paroxysmal SVT -converted after 1 dose of Adenosine on 10/16/19 in [facility] -place on telemetry monitoring -R posterolateral superior atrium ablated by Dr. Guerrero 10/16 #ANDREW, resolved -initial BUN 27, Cr 1.42, above baseline of 1 -half maintenance IVF LR @ 60 ml/h -Cr and GFR improved Diet: HH VTE: SCDs Code status: FULL Dispo: Stable, admitted to observation on telemetry unit. S/P ablation on 10/16. Will discuss with Dr. Guerrero, likely d/c today
[2019-10-18] MEDS ORDERED: Icosapent Ethyl 1 GM CAPSULE PO SCH (08:00)
[2019-10-18] MEDS ORDERED: Potassium Chloride 20 MEQ TAB PO SCH (09:00)
[2019-10-18] MEDS ORDERED: Folic Acid 1 MG TAB PO SCH (09:00)
[2019-10-18] MEDS ORDERED: Leflunomide 10 mg Tablet PO SCH (09:00)
[2019-10-18] MEDS ORDERED: predniSONE 5 MG TAB PO SCH (09:00)
[2019-10-18] MEDS ORDERED: Citalopram 10 MG TAB PO SCH (09:00)
[2019-10-18] MEDS ORDERED: Ezetimibe 10 MG TAB PO SCH (09:00)
[2019-10-18] MEDS ORDERED: Montelukast Sodium 10 mg Tablet PO SCH (09:00)
[2019-10-18] MEDS ORDERED: hydrALAZINE 25 MG TAB PO SCH (09:00)
[2019-10-18] MEDS ORDERED: NIFEdipine XL 60 MG TAB PO SCH (09:00)
[2019-10-18] MEDS ORDERED: Atorvastatin Calcium 40 MG TAB PO SCH (09:00)
[2019-10-18] MEDS ORDERED: Zinc Sulfate 220 MG CAP PO SCH (09:00)
[2019-10-18] MEDS ORDERED: Cyanocobalamin (Vitamin B-12) 1,000 MCG TAB PO SCH (09:00)
[2019-10-18] MEDS ORDERED: Tofacitinib Citrate [Xeljanz] 5 MG PO SCH (09:00)
[2019-10-18] MEDS ORDERED: Clopidogrel Bisulfate 75 MG TAB PO SCH (09:00)
--- NOTE | 2019-10-18 10:04 | PDOC.EP ---
- Subjective Date: 10/18/19 Time: 08:00 Interval History: s/p EP study and ablation for atrial tachycardia. Feels well. Tender to touch at left groin site but not limiting. Voices no other cardiac concerns this AM. eager to go home - Review of Systems Constitutional: denies: chills, fever, malaise, sweats, weakness, other Respiratory: denies: cough, dry, hemoptysis, pleuritic pain, shortness of breath , SOB with excertion, sputum, wheezing, other Cardiology: denies: chest pain, edema, heart racing, light headedness, paroxysmal noc. dyspnea, orthopnea, palpitations, passing out, pleuritic pain, pressure, swelling, other Gastrointestinal: denies: abdominal pain, constipation, diarrhea, hematochezia, melena, nausea, vomitting, other - Objective Allergies/Adverse Reactions: Allergies Allergy/AdvReac Type Severity Reaction Status Date / Time aspirin Allergy Intermediate RASH, HIVES Verified 10/17/19 06:25 shrimp Allergy Verified 10/17/19 06:25 Current Medications Acetaminophen (Tylenol) 650 mg PO Q4H PRN PRN Reason: Headache/Fever/Mild Pain (1-3) Acetaminophen/Codeine Phosphate (Tylenol #3) 1 tab PO Q4H PRN PRN Reason: Mild Pain (1-3) Acetaminophen/Codeine Phosphate (Tylenol #3) 2 tab PO Q4H PRN PRN Reason: Moderate Pain (4-6) Last Admin: 10/17/19 21:05 Dose: 2 tab Acidophilus (Floranex) 1 tab PO DAILY PRN PRN Reason: Diarrhea/Loose Stools Albuterol Sulfate (Proventil Hfa) 2 puff INH Q4H PRN PRN Reason: Dyspnea Albuterol Sulfate (Ventolin) 7.5 mg NEB Q4HR PRN PRN Reason: SOB &/or Wheezing Atorvastatin Calcium (Lipitor) 80 mg PO DAILY [facility] Last Admin: 10/18/19 08:44 Dose: 80 mg Calcipotriene (Dovonex 0.005% Cream) 0 gm TOP BID [facility] Last Admin: 10/18/19 08:49 Dose: 1 applic Calcium Carbonate (Tums) 1,000 mg PO Q4H PRN PRN Reason: Heartburn or Indigestion Citalopram Hydrobromide (Celexa) 10 mg PO DAILY [facility] Last Admin: 10/18/19 08:45 Dose: 10 mg Clopidogrel Bisulfate (Plavix) 75 mg PO DAILY [facility] Last Admin: 10/18/19 08:44 Dose: 75 mg Cyanocobalamin (Vitamin B-12) 1,000 mcg PO DAILY [facility] Last Admin: 10/18/19 08:44 Dose: 1,000 mcg Cyclobenzaprine HCl (Flexeril) 10 mg PO TID PRN PRN Reason: Muscle Pain Last Admin: 10/18/19 00:21 Dose: 10 mg Diclofenac Sodium (Voltaren 0.1% Ophth Soln) 1 drop EA EYE QID [facility] Last Admin: 10/18/19 08:49 Dose: 1 drop Ezetimibe (Zetia) 10 mg PO DAILY [facility] Last Admin: 10/18/19 08:42 Dose: 10 mg Ergocalciferol (Drisdol) 1.25 mg PO Fr@0900 [facility] Folic Acid (Folvite) 1 mg PO DAILY [facility] Last Admin: 10/18/19 08:44 Dose: 1 mg HCTZ/Losartan Potassium (Hyzaar 50/12.5) 1 tab PO DAILY [facility] Last Admin: 10/18/19 08:45 Dose: 1 tab Hydralazine HCl (Apresoline) 50 mg PO DAILY [facility] Last Admin: 10/18/19 08:43 Dose: 50 mg Hydroxyzine HCl (Atarax) 25 mg PO QID PRN PRN Reason: Itching Ipratropium Lanexa (Atrovent Hfa) 2 puff INH QID PRN PRN Reason: SOB &/or Wheezing Leflunomide (Arava) 10 mg PO DAILY [facility] Last Admin: 10/18/19 08:41 Dose: 10 mg Lidocaine/Prilocaine (Emla 2.5%) 0 gm TOP QID PRN PRN Reason: Pain Loratadine (Claritin) 10 mg PO DAILY PRN PRN Reason: ALLERGIES Metoprolol Succinate (Toprol Xl) 50 mg PO DAILY [facility] Last Admin: 10/18/19 08:45 Dose: 50 mg Miscellaneous Medication (Vascepa) 2 gm PO BID[facility] Last Admin: 10/18/19 08:45 Dose: 2 gm Montelukast Sodium (Singulair) 5 mg PO DAILY [facility] Last Admin: 10/18/19 08:44 Dose: 5 mg Nifedipine (Procardia Xl) 60 mg PO BID [facility] Last Admin: 10/18/19 08:43 Dose: 60 mg Nitroglycerin (Nitrostat) 0.4 mg SL Q5MIN PRN PRN Reason: Chest Pain Ondansetron HCl (Zofran Odt) 4 mg PO Q6H PRN PRN Reason: Nausea/Vomiting Ondansetron HCl (Zofran) 4 mg IVP Q6H PRN PRN Reason: Nausea/Vomiting Pantoprazole Sodium (Protonix) 40 mg PO BID [facility] Last Admin: 10/18/19 08:43 Dose: 40 mg Etanercept [Enbrel] (50 Mg) 0 each SC Q7DAYS [facility] Promethazine/Dextromethorphan [ Promethazine-Dm Solution] 5 Ml 0 each PO Q6HR PRN PRN Reason: Cough Tofacitinib Citrate ([Xeljanz] 5 Mg) 0 each PO BID [facility] Potassium Chloride (K-Dur) 60 meq PO DAILY [facility] Last Admin: 10/18/19 08:43 Dose: 60 meq Prednisone (Prednisone) 10 mg PO DAILY [facility] Last Admin: 10/18/19 08:44 Dose: 10 mg Ranolazine (Ranexa) 500 mg PO BID [facility] Last Admin: 10/18/19 08:42 Dose: 500 mg Sodium Chloride (Flush - Normal Saline) 10 ml IVF PRN PRN PRN Reason: Saline Flush Terbinafine HCl (Lamisil At 1% Cream) 0 gm TOP TID PRN PRN Reason: skin irritation Zinc Sulfate (Zinc Sulfate) 220 mg PO DAILY [facility] Last Admin: 10/18/19 08:44 Dose: 220 mg Vital Signs & Weight: Vital Signs Temp Pulse Resp BP BP Pulse Ox 10/18/19 08:43 66 10/18/19 07:23 98.9 F 66 16 131/85 98 10/18/19 05:16 114/58 L 10/18/19 04:26 98.8 F 84 17 105/75 94 L 10/17/19 23:52 82 16 146/78 H Weight 168 lb 1.6 oz I/O: I/O 10/17/19 10/18/19 10/19/19 06:59 06:59 06:59 Intake Total 1370 Output Total 1200 Balance 170 - Physical Exam General: alert & oriented x3, appears well, no apparent distress, speech clear, affect appropriate HEENT: mucus membranes moist, normocephaly Neck: supple neck, midline trachea, no JVD/HJR, no masses, no bruit, no lymphadenopathy, no thromegaly Cardiology: regular rate and rhythm, no murmur, PMI nondisplaced Lungs: clear to auscultation, normal breath sounds, no wheeze, rales, rhonchi Neurology: cranial nerve 2-12 intact, sensory function intact, no lateralizing findings Abdomen: unremarkable, active bowel sounds, no pulsations/bruits Extremities: dry, strong pulses, warm Skin: groin sites stable - Labs Result Diagrams: 10/17/19 06:43 10/17/19 06:43 - EKG Interpretation EKG Method: Telemetry EKG shows: Sinus rhythm - Assessment/Plan Assessment/Plan: 1. Supraventricular tachycardia with ventricular rate of 176 beats per minute, terminated with IV adenosine 2. Coronary artery disease status post percutaneous coronary intervention of the right coronary artery in 2018. 3. Dyslipidemia. 4. Surgeon syndrome. 5. Ongoing tobacco habituation. 6. Hypertension. 7. Obesity. S/P EPS and RFA for atrial tachycardia. Ok to DC home by EP. 6 week followup will be arranged.
[2019-10-18 12:12] VITALS: BP 120/59; TEMP 98.7
--- NOTE | 2019-10-18 15:22 | PRG ---
DATE OF SERVICE: 10/18/2019 ADDENDUM: Please add this as an addendum to the note of Dr. Beatrice Angelo. Ms. Murguia underwent successful ablation yesterday per Dr. Guerrero. She is ready for discharge this morning to follow up with her PCP and shuttle repairer later. Job ID: [id number]
[2019-10-19] MEDS ORDERED: Ergocalciferol 1.25 MG(50,000 UNITS) CAP PO SCH (09:00)
--- NOTE | 2019-10-19 15:25 | DIS ---
DATE OF ADMISSION: 10/17/2019 DATE OF DISCHARGE: 10/18/2019 ADMITTING RESIDENT: Genesis Molina DO ADMITTING ATTENDING: Ambrocio Ortega MD DISCHARGE RESIDENT: Beatrice Angelo MD DISCHARGE ATTENDING: Earl Ortiz MD CONSULTS: Cardiology (Dr. Correa), Electrophysiology (Dr. Guerrero). PROCEDURES: EP study with ablation on 10/17/2019. IMAGING: Chest x-ray: No acute cardiopulmonary process. PRIMARY DIAGNOSES: 1. Atypical chest pain. 2. Paroxysmal supraventricular tachycardia. 3. Acute kidney injury. SECONDARY DIAGNOSIS: None. DISCHARGE MEDICATIONS: 1. Two puffs inhaled ProAir Respiclick q.4 hours p.r.n. 2. Ventolin/DuoNeb 3 mL q.4 hours p.r.n. 3. Alendronate sodium 70 mg p.o. q.7 days. 4. Atorvastatin 80 mg p.o. daily. 5. One application of Dovonex 0.005% cream topical b.i.d. 6. Vitamin D3, 88443 units p.o. q.7 days. 7. Celexa 10 mg p.o. daily. 8. Clopidogrel 75 mg p.o. daily. 9. Vitamin B12 1000 mcg p.o. daily. 10. Flexeril 10 mg p.o. t.i.d. p.r.n. 11. One drop Voltaren ophthalmic solution each eye q.i.d. 12. Nexium 20 mg p.o. b.i.d. 13. Enbrel 50 mg subcu q.7 days. 14. Zetia 10 mg p.o. daily. 15. Folvite 1 mg p.o. daily. 16. Hydralazine 50 mg p.o. daily. 17. Two [place] 10/325 tablets p.o. q.4 hours p.r.n. 18. Hydroxyzine 25 mg p.o. q.i.d. p.r.n. for itching. 19. Vascepa 2 g p.o. b.i.d. with meals. 20. Atrovent 2 puffs inhaled q.i.d. p.r.n. 21. Floranex one tab p.o. daily. 22. Leflunomide 10 mg p.o. daily. 23. Levocetirizine dihydrochloride 5 mg p.o. daily. 24. One applied topically q.i.d. of lidocaine/prilocaine. 25. Losartan 50/hydrochlorothiazide 12.5 mg 1 tablet daily. 26. Metoprolol succinate 50 mg p.o. daily. 27. Montelukast 5 mg p.o. daily. 28. Nifedipine ER 60 mg p.o. b.i.d. 29. Nitroglycerin 0.4 mg p.o. as directed. 30. Zofran 4 mg tablet p.o. t.i.d. p.r.n. nausea. 31. Pantoprazole 40 mg p.o. daily p.r.n. 32. K-Dur 30 mEq p.o. as directed while taking Lasix. 33. Prednisone 10 mg p.o. daily. 34. Promethazine/dextromethorphan 5 mL p.o. q.6 hours p.r.n. 35. Ranexa 500 mg p.o. b.i.d. 36. One application of terbinafine topical t.i.d. 37. Xeljanz 5 mg p.o. b.i.d. 38. Zinc sulfate 110 mg p.o. daily. DISCONTINUED MEDICATIONS: Ezetimibe 10 mg p.o. daily. HISTORY OF PRESENT ILLNESS/HOSPITAL COURSE: The patient is a 63-year-old female with past medical history of paroxysmal SVT, who presented to the ED with chest pain accompanied by nausea and vomiting. She described the chest pain as pressure- like, located in the center of her chest without radiation and she also reported feeling dizzy. At the emergency department, she was found to be in SVT, which converted to normal sinus rhythm after one dose of adenosine. She was then admitted for further cardiac monitoring. During her hospitalization, her escalator operator, Dr. Correa was consulted for further medical management. Dr. Correa consulted Dr. Guerrero, Electrophysiology, and Dr. Guerrero agreed to do a cardiac ablation. The ablation occurred on 10/17/2019 without difficulties. After the ablation, the patient reported no chest pain. She was monitored overnight on telemetry after the ablation and was found to be in normal sinus rhythm throughout the night. The patient was evaluated on the day of discharge and found to be in stable condition. She was agreeable to following up with her primary care physician and with Dr. Guerrero as an outpatient after the procedure. It should be noted that the patient was found to have ANDREW on admission and was fluid resuscitated slowly, but her ANDREW was found to be resolved by the time of discharge. DISPOSITION: Stable. DISCHARGE INSTRUCTIONS: 1. Location: Home. 2. Diet: Heart healthy. 3. Activity: As tolerated. 4. Followup: With Dr. Betts within 7 days, with Dr. Correa within the next month, and with Dr. Guerrero within 6 wks. Job ID: [id number] MTDD
[2019-10-24] MEDS ORDERED: Etanercept [Enbrel] 50 MG SC SCH (09:00)
--- NOTE | 2019-10-25 19:33 | EKG ---
Test Reason : Blood Pressure : / mmHG Vent. Rate : 083 BPM Atrial Rate : 083 BPM P-R Int : 222 ms QRS Dur : 076 ms QT Int : 388 ms P-R-T Axes : 056 070 053 degrees QTc Int : 455 ms Sinus rhythm with 1st degree A-V block Otherwise normal ECG When compared with ECG of 17-OCT-2019 03:19, (Unconfirmed) No significant change was found Confirmed by DR. Sofiya STACK ([id number]) on 10/25/2019 7:33:22 PM Referred By: Confirmed By:DR. Sofiya STACK
== END 2019-10-18 12:57 | disposition home or self-care (01) ==
LOC: ERS 03:04 → 2SW 03:57
PROVIDERS: ADMIT Emergency Medicine; ATTEND Emergency Medicine
PROC: 4A023FZ Measurement of Cardiac Rhythm, Percutaneous Approach (ICD-10-PCS; principal; 2019-10-17)
PROC: 4A0234Z Measurement of Cardiac Electrical Activity, Percutaneous Approach (ICD-10-PCS; 2019-10-17)
PROC: 02583ZZ Destruction of Conduction Mechanism, Percutaneous Approach (ICD-10-PCS; 2019-10-17)
DX: I47.1 Supraventricular tachycardia (principal); R07.89 Other chest pain; I12.9 Hypertensive chronic kidney disease with stage 1 through stage 4 chronic kidney disease, or unspecified chronic kidney disease; N18.9 Chronic kidney disease, unspecified; N17.9 Acute kidney failure, unspecified; I25.10 Atherosclerotic heart disease of native coronary artery without angina pectoris; J44.9 Chronic obstructive pulmonary disease, unspecified; E78.5 Hyperlipidemia, unspecified; M35.00 Sjogren syndrome, unspecified; F17.210 Nicotine dependence, cigarettes, uncomplicated; Z79.52 Long term (current) use of systemic steroids; Z79.899 Other long term (current) drug therapy; Z88.6 Allergy status to analgesic agent; Z91.013 Allergy to seafood; Z95.5 Presence of coronary angioplasty implant and graft
CPT/HCPCS: 36415; 76942; 80053; 80061; 82553; 83036; 83735; 84100; 84443; 84484; 85025; 93005; 93010; 93613; 93623; 93653; 96360; 96361; C1730; C1732; C1769; G0378; J1644; J2001; J2405; J2704; J3010; J7512

== ENCOUNTER 2020-06-12 09:23 | Outpatient (CLI) | payer OTHER ==
--- NOTE | 2020-06-12 11:37 | MRI ---
MR the lumbar spine with and without contrast INDICATION: 64-year-old female with neurogenic claudication COMPARISON: MR the lumbar spine without contrast dated October 11, 2017 TECHNIQUE: Multiplanar multisequence MR images were obtained of lumbar spine with and without IV cont rast. Contrast: 20 cc of MultiHance. FINDINGS: Bone marrow: There is a benign-appearing hemangioma within the right aspect of L1. There is a herniat ed Schmorl's node involving the superior aspect of T12. Distal spinal cord and conus: Normal. Conus is seen to terminate at the L1-L2 level. Visualized retroperitoneum and paraspinal soft tissues: There is a 1.4 cm cyst involving the superior pole of the right kidney. Vertebral levels: L5-S1: There is mild facet joint degenerative change bilaterally. There is a minimal broad-based bulg e. No appreciable central canal or neural foraminal narrowing is evident. L4-5: There is postprocedural change most consistent with laminotomies at L4-5. There is grade 1 ante rolisthesis of L4 and L5. There is moderate to severe facet joint degenerative change. There is a broad-based disc bulge. Degenerative change in addition to loss of disc space height and a grade 1 a nterolisthesis induces mild bilateral neural foraminal narrowing which is stable to the prior exam. L3-4: There is a mild broad-based disc bulge and mild facet joint degenerative change inducing mild n eural foraminal encroachment without definite impingement. L2-3: No appreciable central canal or neuroforaminal narrowing. L1-L2: No appreciable central canal or neuroforaminal narrowing. T12-L1: No appreciable central canal or neuroforaminal narrowing. Postcontrast series: No abnormal enhancement demonstrated. IMPRESSION: 1. Stable mild lumbar spondylosis. 2. Stable mild bilateral neural foraminal narrowing at L4-5. 3. Right renal cyst
[2020-06-12] MEDS ORDERED: Magnevist 469MG/ML 20 ML VIAL ONE (14:55)
== END 2020-06-12 09:24 | disposition home or self-care (01) ==
LOC: TBSIIMAG 09:23
PROVIDERS: ATTEND Neurological Surgery
DX: M48.062 Spinal stenosis, lumbar region with neurogenic claudication (principal); M47.816 Spondylosis without myelopathy or radiculopathy, lumbar region; N28.1 Cyst of kidney, acquired
CPT/HCPCS: 72158; A9579

== ENCOUNTER 2020-09-02 12:44 | Outpatient (CLI) | payer OTHER ==
--- NOTE | 2020-09-02 13:46 | MRI ---
MR OF THE THORACIC SPINE WITHOUT CONTRAST INDICATION: History of back pain with radiculopathy and neurogenic claudication TECHNIQUE: Multiplanar multisequence MR images were obtained of the thoracic spine without contrast. Spine count series was provided. COMPARISON: None FINDINGS: Bone marrow signal intensity: Is a benign-appearing hemangioma within the right aspect of the T12 [place] tebral body. There is a remote appearing superior endplate compression fracture of T11. Spinal alignment: Normal Spinal cord: Normal signal intensity and contour. Paravertebral soft tissues: There is a 7.8 mm suspected sebaceous cyst seen within the subcutaneous t issues at approximately the T10 vertebral level. There is a 1.6 cm T2 hyperintense, T1 hypointense cyst involving the right kidney better seen on a CT the abdomen and pelvis dated September 14, 2013. Vertebral levels: T1-T2: No appreciable central canal or neural foraminal narrowing is evident. T2-T3: No appreciable central canal or neural foraminal narrowing. T3-T4: No appreciable central canal or neural foraminal narrowing.. T4-T5: No appreciable central canal or neural foraminal narrowing. T5-T6: No appreciable central canal or neural foraminal narrowing. T6-T7: No appreciable central canal or neural foraminal narrowing. T7-T8: No appreciable central canal or neural foraminal narrowing. T8-T9: No appreciable central canal or neural foraminal narrowing. T9-T10: No appreciable central canal or neural foraminal narrowing. T10-T11: There is a mild broad-based disc bulge without appreciable central canal or neural foraminal narrowing. T11-T12: No appreciable central canal or neural foraminal narrowing. T12-L1: No appreciable central canal or neural foraminal narrowing. Additional findings: None. IMPRESSION: 1. Mild thoracic spondylosis
== END 2020-09-02 12:45 | disposition home or self-care (01) ==
LOC: TBSIIMAG 12:44
PROVIDERS: ATTEND Neurological Surgery
DX: M47.24 Other spondylosis with radiculopathy, thoracic region (principal); I73.9 Peripheral vascular disease, unspecified
CPT/HCPCS: 72146

== ENCOUNTER 2021-06-09 11:49 | Outpatient (CLI) | payer OTHER | END 2021-06-09 11:50 | disposition home or self-care (01) | LOC: MRI 11:49 → BICRAD 11:50 | PROVIDERS: ATTEND Nurse Practitioner Family | DX: M54.16 Radiculopathy, lumbar region (principal); M51.36 Other intervertebral disc degeneration, lumbar region | CPT/HCPCS: 72148 ==